=== PATIENT | male | born 1960 | race Caucasian/White ===

== ENCOUNTER 2016-02-13 13:17 | Emergency (ER) | payer OTHER ==
--- NOTE | 2016-02-13 17:17 | ED ORDER SUMMARY ---
..... Patient: DIPTI MIGUEL OrderSheet [facility] VisitID: [id number] [address] [place] [address] 55y, M Registration Date/Time: 02/13/2016 ORDER SHEET Weight: 81.1 kg (stated) Allergies: No Known Drug Allergy GENERAL ORDERS: Culture, Wound Surface (Arm) (swab) Urgent (17:15 02/13/2016 Kaushik LANDRY) (Ack 17:18 NHgermannandez) (17:34 DDean R.N.) MEDICATION ORDERS: Clindamycin PO 600 mg (NOW) (17:14 02/13/2016 Kaushik LANDRY) (Ack 17:18 DDean R.N.) (17:34 DDean R.N.) IV FLUIDS: ORDER SHEET NOTES: [Electronically signed by Jolly Queen R.N. (17:35 02/13/2016)] [Electronically signed by Arnold Lenz MD (15:28 02/15/2016)] [Electronically locked/signed by Jolly Queen R.N. (17:35 02/13/2016)]
--- NOTE | 2016-02-13 17:17 | ED NURSING NOTES ---
Clinical Report - Nurses [facility] [address] [place] [address] 02/13/2016 13:20 Patient: DIPTI MIGUEL TRIAGE Triage time 13:42. Chief Complaint: SKIN LESION and . MRSA abscess left forearm, taking Bactrim. Alert. --13:45 Nano Cedeno R.N. 13:42 02/13/16. BP: 158/80. HR: 87. RR: 18. O2 saturation: 97%. Temp: 97.6 F. Pain level now: 05/16. --13:45 Nano Cedeno R.N. Weight: 81.1 kg stated. Height/Length: 70.5 inches Per Patient. BMI: 25.3. --13:45 Nano Cedeno R.N. Medications Flexeril, 2x a day. --17:27 Jolly Queen R.N. Motrin 600mg prn neck pain . --17:28 Jolly Queen R.N. Bactrim DS BID (started yesterday) . --17:28 Jolly Queen R.N. Allergies No Known Drug Allergy. --17:27 Jolly Queen R.N. History Arrived by private vehicle. Historian: patient. Accompanied by family. Primary physician (Kameron Phipps). Onset. (6 days ago, seen at [facility] 3 days ago). --13:45 Nano Cedeno R.N. ( Pt was at [facility] 3 days ago and started on bactrim. states swelling and redness have gotten worse despite antibiotics. called clinic yesterday and asked for keflex, and was denied). --14:06 Jolly Queen R.N. PHYSICAL ASSESSMENT 14:00. Ambulatory to room. Patient gowned. GENERAL / NEURO / PSYCH: Alert. The patient does not appear to be in acute distress. Oriented X 4. RESPIRATORY: Respirations not labored. SKIN: Skin rash present. Skin tenderness present. Swelling present. Increased warmth present. Erythema present. --14:07 Jolly Queen R.N. NURSING PROGRESS NOTES 14:00. Head of bed elevated. Reassurance given. Patient identifiers checked. Call light placed in reach. Side rails up. Bed placed in lowest position. Patient ready for evaluation- chart flagged. --14:06 Jolly Queen R.N. 16:53 02/13/16. I & D: Incision and Drainage of abscess performed by ED physician. Assisted by one nurse. The abscess is located on the (left forearm). Preparation: Incision and Drainage tray set up with Marcaine. Procedure; a small amount of pus was drained. Cavity was irrigated with saline and packed with gauze. A dressing was applied. Post-procedure: he was stable, no complications, bleeding controlled and dressing intact. Total time of assist / procedure: 15 minutes. --16:53 Jolly Queen R.N. 16:53. I & D: Procedure. Sample obtained for cultures. --17:32 Jolly Queen R.N. 17:15. Applied clean bulky dressing consisting of 4x4 gauze, following the application of antibiotic ointment. Secured with tape and kerlix (done by Nell Vieyra business process specialist). --17:33 Jolly Queen R.N. 17:15 02/13/2016 clindamycin * PO 600mg --17:34 Jolly Queen R.N. DISPOSITION / DISCHARGE 17:20. Condition at departure: improved and stable. No learning barriers present. Discharge instructions provided and reviewed with the patient. Reviewed medication(s) (add clindamycin, continue bactrim, vicodin). Patient verbalized understanding. Written instructions provided in Maldivian. The patient was discharged home and accompanied by family. He left the Emergency Department ambulatory and via private vehicle. Family member driving. --17:31 Jolly Queen R.N. 17:20 02/13/16. BP: 142/76. HR: 80. RR: 18. O2 saturation: 98%. Temp: deferred. Pain level now: 03/18. --17:31 Jolly Queen R.N. Locked/Released at 02/13/2016 17:35 by Jolly Queen R.N.
--- NOTE | 2016-02-13 17:17 | ED ORDER SUMMARY ---
..... Patient: DIPTI MIGUEL OrderSheet [facility] VisitID: [id number] [address] [place] [address] 55y, M Registration Date/Time: 02/13/2016 ORDER SHEET Weight: 81.1 kg (stated) Allergies: No Known Drug Allergy GENERAL ORDERS: Culture, Wound Surface (Arm) (swab) Urgent (17:15 02/13/2016 Kaushik LANDRY) (Ack 17:18 WVgermannandez) (17:34 DDean R.N.) MEDICATION ORDERS: Clindamycin PO 600 mg (NOW) (17:14 02/13/2016 Kaushik LANDRY) (Ack 17:18 DDean R.N.) (17:34 DDean R.N.) IV FLUIDS: ORDER SHEET NOTES: [Electronically signed by Jolly Queen R.N. (17:35 02/13/2016)] [Electronically signed by Arnold Lenz MD (15:28 02/15/2016)] [Electronically locked/signed by Jolly Queen R.N. (17:35 02/13/2016)]
--- NOTE | 2016-02-13 17:17 | ED CLINICAL REPORT ---
Clinical Report - Physicians/Mid Levels [facility] [address] [place] [address] 02/13/2016 13:20 Patient: DIPTI MIGUEL Time Seen: 15:29. Arrived- By private vehicle. Historian- patient. HISTORY OF PRESENT ILLNESS Chief Complaint: UPPER EXTREMITY PAIN and SWELLING. Modifying factors- worsened by movement. Severity is described as being moderate in degree. The quality is noted to be "pain". This started about days ago and is still present (Now better than yesterday). It was gradual in onset. Symptoms located in the area of the left arm, left elbow and left forearm. No chest pain, difficulty breathing, sensory loss or motor loss. He has had redness and swelling. Patient denies an injury. Similar symptoms previously: None. Recent medical care: The patient was seen recently by a health care provider. ( Seen three days ago. Had I&D and but on Bactrim. He removed the packing on the first day. He still gets some pus when he presses on the wound.). REVIEW OF SYSTEMS No fever, chills, cough or abdominal pain. PAST HISTORY JAKE. SOCIAL HISTORY Current every day smoker. ADDITIONAL NOTES The nursing notes have been reviewed. PHYSICAL EXAM Vital Signs: 02/13/2016 17:20 BP: 142/76. HR: 80. RR: 18. O2 saturation: 98%. Pain level now: 210. 02/13/2016 13:42 BP: 158/80. HR: 87. RR: 18. O2 saturation: 97%. Temp: 97.6 F. Pain level now: 4/10. Appearance: Alert. No acute distress. Extremities: Left elbow: mild erythema, tenderness and swelling. Neurovascular intact distally. No joint effusion or limitation in ROM. Left forearm: mild erythema, tenderness and swelling located in the proximal forearm. Neurovascular intact distally. (Provimal forearm has nearly closed I&D site). LABS, X-RAYS, AND EKG Laboratory Tests: Culture, Wound Surface: (HIRO: 02/13/2016 16:40) ( MsgRcvd 02/15/2016 10:39) IP SPECIMEN DESCRIPTION: SWAB Test Result Flag Units (Reference) GRAM STAIN, WOUND, SUPERFICIAL DATE: 02/13/16 NO ORGANISMS SEEN: NO ORGANISMS SEEN WHITE BLOOD CELLS: RARE POLY -- ARM CULTURE, WOUND, SUPERFICIAL DATE: 02/15/16 NORMAL SKIN TANESHA: SCANT GROWTH: MIXED NORMAL SKIN TANESHA PRELIM REPORT: PRELIMINARY REPORT #2 -- STAAUR GROWTH: SCANT GROWTH ID AND SENS TO FOLLOW: SENSITIVITY TO FOLLOW . PROGRESS AND PROCEDURES Incision & Drainage of Abscess: The abscess is located in the left forearm. The risks of the procedure, benefits and alternatives were explained. Consent was obtained. Local anesthesia provided using 1% lidocaine. Skin cleansed with Betadine. The abscess was incised with a #11 surgical blade. A small amount of pus was drained. Cavity was irrigated with saline and packed with gauze. Sample obtained for cultures. A dressing was applied. ( I marked the outside edges of the cellulitis with a skin marker). Course of Care: 15:26 02/15/16. Bacterim should provide good coverage. I have opened the abscess again as it may have closed prematurely and have added clindamycin. Disposition: Discharged. Condition: stable. CLINICAL IMPRESSION Cellulitis of the left forearm. Abscess to the left upper extremity. INSTRUCTIONS (KEEP TAKING THE BACTRIM/SULFA ADD CLINDAMYCIN IMMEDIATE RECHECK FOR REDNESS SPREADING BEYOND THE PEN FENG.). Prescription Medications: Hydrocodone/APAP 5mg/325mg: take 1 to 2 orally every 6 hours as needed for pain. Dispense fifteen (15). No refills. Clindamycin 300 mg: take 1 capsule orally every 6 hours for 7 days. No refills. Follow-up: Follow up with your doctor in three days for wound check. Understanding of the discharge instructions verbalized by patient. (Electronically signed by Arnold Lenz MD 02/15/2016 15:28)
--- NOTE | 2016-02-13 17:17 | ED NURSING NOTES ---
Clinical Report - Nurses [facility] [address] [place] [address] 02/13/2016 13:20 Patient: DIPTI MIGUEL TRIAGE Triage time 13:42. Chief Complaint: SKIN LESION and . MRSA abscess left forearm, taking Bactrim. Alert. --13:45 Nano Cedeno R.N. 13:42 02/13/16. BP: 158/80. HR: 87. RR: 18. O2 saturation: 97%. Temp: 97.6 F. Pain level now: 05/16. --13:45 Nano Cedeno R.N. Weight: 81.1 kg stated. Height/Length: 70.5 inches Per Patient. BMI: 25.3. --13:45 Nano Cedeno R.N. Medications Flexeril, 2x a day. --17:27 Jolly Queen R.N. Motrin 600mg prn neck pain . --17:28 Jolly Queen R.N. Bactrim DS BID (started yesterday) . --17:28 Jolly Queen R.N. Allergies No Known Drug Allergy. --17:27 Jolly Queen R.N. History Arrived by private vehicle. Historian: patient. Accompanied by family. Primary physician (Kameron Phipps). Onset. (6 days ago, seen at [facility] [place] 3 days ago). --13:45 Nano Cedeno R.N. ( Pt was at [facility] [place] 3 days ago and started on bactrim. states swelling and redness have gotten worse despite antibiotics. called clinic yesterday and asked for keflex, and was denied). --14:06 Jolly Queen R.N. PHYSICAL ASSESSMENT 14:00. Ambulatory to room. Patient gowned. GENERAL / NEURO / PSYCH: Alert. The patient does not appear to be in acute distress. Oriented X 4. RESPIRATORY: Respirations not labored. SKIN: Skin rash present. Skin tenderness present. Swelling present. Increased warmth present. Erythema present. --14:07 Jolly Queen R.N. NURSING PROGRESS NOTES 14:00. Head of bed elevated. Reassurance given. Patient identifiers checked. Call light placed in reach. Side rails up. Bed placed in lowest position. Patient ready for evaluation- chart flagged. --14:06 Jolly Queen R.N. 16:53 02/13/16. I & D: Incision and Drainage of abscess performed by ED physician. Assisted by one nurse. The abscess is located on the (left forearm). Preparation: Incision and Drainage tray set up with Marcaine. Procedure; a small amount of pus was drained. Cavity was irrigated with saline and packed with gauze. A dressing was applied. Post-procedure: he was stable, no complications, bleeding controlled and dressing intact. Total time of assist / procedure: 15 minutes. --16:53 Jolly Queen R.N. 16:53. I & D: Procedure. Sample obtained for cultures. --17:32 Jolly Queen R.N. 17:15. Applied clean bulky dressing consisting of 4x4 gauze, following the application of antibiotic ointment. Secured with tape and kerlix (done by Nell Vieyra band master). --17:33 Jolly Queen R.N. 17:15 02/13/2016 clindamycin * PO 600mg --17:34 Jolly Queen R.N. DISPOSITION / DISCHARGE 17:20. Condition at departure: improved and stable. No learning barriers present. Discharge instructions provided and reviewed with the patient. Reviewed medication(s) (add clindamycin, continue bactrim, vicodin). Patient verbalized understanding. Written instructions provided in [place]ian. The patient was discharged home and accompanied by family. He left the Emergency Department ambulatory and via private vehicle. Family member driving. --17:31 Jolly Queen R.N. 17:20 02/13/16. BP: 142/76. HR: 80. RR: 18. O2 saturation: 98%. Temp: deferred. Pain level now: 03/18. --17:31 Jolly Queen R.N. Locked/Released at 02/13/2016 17:35 by Jolly Queen R.N.
--- NOTE | 2016-02-15 15:28 | ED MED RECONCILIATION SUMMARY ---
Patient: DIPTI MIGUEL Medication Reconciliation Report [facility] VisitID: [id number] [address] [place] [address] 55y, M Registration Date/Time: 02/13/2016 Weight: 81.1 kg Height/Length: 60 in. BMI: 25.3 ALLERGIES: No Known Drug Allergy The patient's Home Medications are listed below: THE FOLLOWING MEDICATIONS NEED TO BE RECONCILED: Bactrim DS BID (started yesterday) Flexeril, 2x a day Motrin 600mg prn neck pain The source(s) of the original Home Medication information: Not obtained. The following Medications were given to the patient in the Emergency Department: clindamycin PO 600mg, administered: 02/13/2016 5:15:00 PM The following Medications were prescribed to the patient: Hydrocodone/APAP 5mg/325mg: take 1 to 2 orally every 6 hours as needed for pain. Dispense fifteen (15). No refills. -- Arnold Lenz MD Clindamycin 300 mg: take 1 capsule orally every 6 hours for 7 days. No refills. -- Arnold Lenz MD
--- NOTE | 2016-02-15 15:28 | ED MAR SUMMARY ---
..... Medication Administration Record [facility] [address] [place] [address] Patient: DIPTI MIGUEL Visit ID: [id number] 55y, M Weight: 81.1 kg Height/Length: 70.5 in BMI: 25.3 ALLERGIES: No Known Drug Allergy Given 17:15 02/13/2016 Bret, Vashti Azevedo. Medication Administered: clindamycin *, Dose: 600mg * PO. Medication Ordered: Clindamycin PO 600 mg (NOW).
--- NOTE | 2016-02-15 15:28 | ED MED RECONCILIATION SUMMARY ---
Patient: DIPTI MIGUEL Medication Reconciliation Report [facility] VisitID: [id number] [address] [place] [address] 55y, M Registration Date/Time: 02/13/2016 Weight: 81.1 kg Height/Length: 60 in. BMI: 25.3 ALLERGIES: No Known Drug Allergy The patient's Home Medications are listed below: THE FOLLOWING MEDICATIONS NEED TO BE RECONCILED: Bactrim DS BID (started yesterday) Flexeril, 2x a day Motrin 600mg prn neck pain The source(s) of the original Home Medication information: Not obtained. The following Medications were given to the patient in the Emergency Department: clindamycin PO 600mg, administered: 02/13/2016 5:15:00 PM The following Medications were prescribed to the patient: Hydrocodone/APAP 5mg/325mg: take 1 to 2 orally every 6 hours as needed for pain. Dispense fifteen (15). No refills. -- Arnold Lenz MD Clindamycin 300 mg: take 1 capsule orally every 6 hours for 7 days. No refills. -- Arnold Lenz MD
--- NOTE | 2016-02-15 15:28 | ED DISCHARGE INSTRUCTIONS ---
Patient: DIPTI MIGUEL General Instructions [facility] VisitID: [id number] [place] [address] 55y, M Registration Date/Time: 02/13/2016 Cellulitis of the left forearm. Abscess to the left upper extremity. INSTRUCTIONS (KEEP TAKING THE BACTRIM/SULFA ADD CLINDAMYCIN IMMEDIATE RECHECK FOR REDNESS SPREADING BEYOND THE PEN FENG.). Prescription Medications: Hydrocodone/APAP 5mg/325mg: take 1 to 2 orally every 6 hours as needed for pain. Dispense fifteen (15). No refills. Clindamycin 300 mg: take 1 capsule orally every 6 hours for 7 days. No refills. Follow-up: Follow up with your doctor in three days for wound check. Understanding of the discharge instructions verbalized by patient. ADDITIONAL INFORMATION Abscess [Incision & Drainage] An abscess (sometimes called a boil) occurs when bacteria get trapped under the skin and begin to grow. Pus forms inside the abscess as the body responds to the bacteria. An abscess can occur with an insect bite, ingrown hair, blocked oil gland, pimple, cyst, or puncture wound. Treatment of your abscess has required an incision to drain the pus. If the abscess pocket was large, a gauze packing may have been inserted. This will need to be removed and possibly replaced on your next visit. Antibiotics are not required in the treatment of a simple abscess, unless the infection is spreading into the skin around the wound (known as cellulitis). Healing of the wound will take about one to two weeks depending on the size of the abscess. Healthy tissue will grow from the bottom and sides of the opening until it seals over. Home Care: The wound may drain for the first two days. Cover the wound with a clean dry dressing. If the dressing becomes soaked with blood or pus, change it. If a gauze packing was placed inside the abscess cavity, you may be advised to remove it yourself. You may do this in the shower. Once the packing is removed, you should wash the area in the shower or bath 3 to 4 times a day, until the skin opening has closed. If you were prescribed antibiotics, take them as directed until they are all gone. You may use acetaminophen (Tylenol) or ibuprofen (Motrin, Advil) to control pain, unless another pain medicine was prescribed. [ NOTE: If you have liver disease or ever had a stomach ulcer, talk with your doctor before using these medicines.] Follow Up with your doctor as advised by our staff. If a gauze packing was inserted in your wound, it should be removed in 1-2 days. Check your wound every day for the signs of worsening infection listed below. Get Prompt Medical Attention if any of the following occur: Increasing redness or swelling Red streaks in the skin leading away from the wound Increasing local pain or swelling Continued pus draining from the wound two days after treatment Fever of 100.4F (38C) or higher, or as directed by your healthcare provider You have been given the following additional information: Abscess, Incision And Drainage (Electronically signed by Arnold Lenz MD 02/15/2016 15:28)
--- NOTE | 2016-02-15 15:28 | ED MAR SUMMARY ---
..... Medication Administration Record [facility] [address] [place] [address] Patient: DIPTI MIGUEL Visit ID: [id number] 55y, M Weight: 81.1 kg Height/Length: 70.5 in BMI: 25.3 ALLERGIES: No Known Drug Allergy Given 17:15 02/13/2016 Bret, Vashti Azevedo. Medication Administered: clindamycin *, Dose: 600mg * PO. Medication Ordered: Clindamycin PO 600 mg (NOW).
== END 2016-02-13 17:20 | disposition home or self-care (01) ==
LOC: ED SRH 13:17
DX: L03.114 Cellulitis of left upper limb (principal); L02.414 Cutaneous abscess of left upper limb; F17.200 Nicotine dependence, unspecified, uncomplicated; Z79.899 Other long term (current) drug therapy
CPT/HCPCS: 90070; 90131; 90309; 91672